=== PATIENT | female | born 1965 | race Caucasian/White ===

== ENCOUNTER 2016-12-07 13:42 | Emergency (ER) | payer SELFPAY ==
[~2016-12-07] VITALS: Ht 157.5 cm; Wt 81.5 kg
[2016-12-07 14:22] VITALS: BP 143/89
[2016-12-07] MEDS ORDERED: IBUPROFEN 800 MG TABLET PO ONE (14:45)
[2016-12-07] MEDS ORDERED: HYDROCODONE/ACETAMINOPHEN 5-325 MG TABLET PO ONE (14:45)
== END 2016-12-07 16:59 | disposition home or self-care (01) ==
LOC: EDUNIT# 13:42 → EMS 13:45
DX: S82.841A Displaced bimalleolar fracture of right lower leg, initial encounter for closed fracture (principal); S93.402A Sprain of unspecified ligament of left ankle, initial encounter; X58.XXXA Exposure to other specified factors, initial encounter; Y93.01 Activity, walking, marching and hiking; Y92.89 Other specified places as the place of occurrence of the external cause; Y99.8 Other external cause status
CPT/HCPCS: 29515; 99284